=== PATIENT | male | born 1965 | race Caucasian/White ===

== ENCOUNTER 2016-12-03 10:35 | Emergency (ER) | payer OTHER ==
[2016-12-03] MEDS ORDERED: DIPHTH,PERTUSS(ACELL),TET VAC 0.5 ML VIAL IM V ONE (11:10)
--- NOTE | 2016-12-03 11:31 | RAD ---
EXAMINATION : FINGER LEFT HISTORY: 10 cm to fourth digit. COMPARISONS: None FINDINGS: There is a comminuted fracture of the tuft of the distal phalanx of the left fourth digit. There is considerable soft tissue disruption as well. Radiopaque foreign bodies are noted within the soft tissues. There is no intra-articular extension. 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 IMPRESSION: Comminuted fracture and soft tissue disruption tuft of the distal phalanx of the left fourth finger as described.
== END 2016-12-03 13:03 | disposition home or self-care (01) ==
LOC: ED 10:35
DX: S61.215A Laceration without foreign body of left ring finger without damage to nail, initial encounter (principal); S62.635B Displaced fracture of distal phalanx of left ring finger, initial encounter for open fracture; Z23 Encounter for immunization; W29.8XXA Contact with other powered hand tools and household machinery, initial encounter; Y93.H3 Activity, building and construction; Y92.009 Unspecified place in unspecified non-institutional (private) residence as the place of occurrence of the external cause